=== PATIENT | male | born 1980 | race Hispanic/Latino ===

== ENCOUNTER 2016-09-11 20:05 | Inpatient (IN) | payer MEDICARE, MEDICAID ==
[2016-09-11 20:23] VITALS: O2SAT 98; BMI 32.8
--- NOTE | 2016-09-11 20:30 | ED PDOC ---
Psych Transfer Clearance - Clearance Statement Clearance Statement: Reviewed vital signs, lab results and transfer papers. Patient clinically stable for psychiatric admission.
[2016-09-11] MEDS ORDERED: Alum-Mag Hydrox-Simethicone Susp (30 mL) PO PRN (22:11)
[2016-09-11] MEDS ORDERED: Magnesium Hydroxide Susp 30 ml UD PO PRN (22:11)
[2016-09-11] MEDS ORDERED: DiphenhydrAMINE 50 mg/ml Inj IM PRN (22:11)
[2016-09-12 12:45] LABS: T4 7.05 ug/dl (5.5-11.0)
--- NOTE | 2016-09-12 12:48 | PCM.PSYCH ---
Initial Psychiatric Evaluation - Initial Psychiatric Evaluation Type of Admission: Voluntary Legal Status: Capacity Chief Complaint (in patient's own words): "I was having suicidal thoughts" Patient's Reaction to Hospitalization: HPI: 36 M with PMH of HIV (as per chart, patient denies to check writer that he has HIV), Hyperlipidemia, Genital Herpes, HPV, Genital warts, presents to the hospital with worsening depression and intermittent suicide thoughts in the context of feeling stressed by his medical issues. He is able to contract for safety at this time. PPHx: H/o schizoaffective disorder, multiple psychiatric admissions, current medications: Seroquel XR 100 mg PO Daily/ 450 mg PO HS PMH: HIV (as per chart, patient denies to check writer that he has HIV), Hyperlipidemia, Genital Herpes, HPV, Genital warts, h/o syphillis reports being treated with antibiotics. All: Risperdal, Haldol FH: Father had a heart attack at 35 years of age ; Denies any FH of HTN, CVA, Cancer, DM II SH: Rents a room in a house. Denies drug use. Current Medications: Active Medications Generic Name Dose Route Start Last Admin Trade Name Freq PRN Reason Stop Dose Admin Acetaminophen 650 mg 09/11/16 22:11 Tylenol 325mg Tab PO Q4 PRN for pain 4-7 Al Hydrox/Mg Hydrox/Simethicone 30 ml 09/11/16 22:11 Maalox Plus 30 Ml PO Q4 PRN Dyspepsia Diphenhydramine HCl 50 mg 09/11/16 22:11 Benadryl IM Q6 PRN Extrapyramidal S/S Unable PO Diphenhydramine HCl 50 mg 09/11/16 22:11 Benadryl PO Q6 PRN Extrapyramidal Symptoms Diphenhydramine HCl 50 mg 09/12/16 01:44 09/12/16 01:55 Benadryl PO 50 mg HS PRN Administration Sleep Emtricitabine/Tenofovir 1 tab 09/13/16 09:00 Truvada 200 Mg-300 Mg PO DAILY JOHANN Lorazepam 2 mg 09/11/16 22:11 Ativan IM Q4 PRN Anxiety/Agitation,Unable PO Lorazepam 2 mg 09/11/16 22:11 09/11/16 22:45 Ativan PO 2 mg Q4 PRN Administration Anxiety/Agitation Magnesium Hydroxide 30 ml 09/11/16 22:11 Milk Of Magnesia PO HS PRN Constipation Mirtazapine 30 mg 09/12/16 22:00 Remeron PO HS JOHANN Quetiapine Fumarate 450 mg 09/12/16 22:00 Seroquel PO HS [facility] Quetiapine Fumarate 150 mg 09/12/16 12:45 Seroquel PO DAILY JOHANN Raltegravir 400 mg 09/12/16 17:00 Isentress PO BID [facility] Past Psychiatric History - Past Psychiatric History Previous Treatment History: Inpatient Pertinent Medical Hx (Current Medical&Sleep Prob, Allergies): Allergies Allergy/AdvReac Type Severity Reaction Status Date / Time haloperidol [From Haldol] Allergy SWELLING Verified 09/11/16 20:15 risperidone [From Risperdal] Allergy SWELLING Verified 09/11/16 20:15 Emtricitabine/Tenofovir [Truvada 200 mg-300 mg] 1 tab PO DAILY 02/24/15 Raltegravir Potassium [Isentress] 400 mg PO BID 02/24/15 QUEtiapine [SEROquel XR] 450 mg PO HS 09/12/16 QUEtiapine [SEROquel] 100 mg PO QAM 09/12/16 QUEtiapine [Seroquel] 25 tab PO BID PRN 09/12/16 Review of Systems - Psychiatric Psychiatric: Depression, Irritability, Mood Swings, Suicidal Ideation Mental Status Examination - Personal Presentation Personal Presentation: Looks stated age - Affect Affect: Broad - Motor Activity Motor Activity: Calm - Reliability in Providing Information Reliability in Providing Information: Good - Speech Speech: Organized - Mood Mood: Depressed - Formal Thought Process Formal Thought Process: No Impairment - Obsessions/Compulsions Obsessions: No Compulsions: No - Cognitive Functions Orientation: Person, Place, Situation, Time Sensorium: Alert Estimate of Intelligence: Average Judgement: Intact, as evidence by: Insight regarding need for hospitalization Memory: Recent intact, as evidence by: Ability to recall events of the day, Remote intact, as evidenced by: Abilit to recall sig. life events, Remote intact , as evidenced by: Ability to recall historical events - Risk Risk: Suicidal - Strength & Assets Inventory Strength & Assets Inventory: Cooperative DSM 5 DX - DSM 5 DSM 5 Diagnosis: Schizoaffective Disorder - Recommended/Plan of Treatment Treatment Recommendations and Plan of Treatment: Schizoaffective Disorder -Admit to psychiatry -Hospitalist consult; currently on contact precautions for active HPV and Herpes infections -Increase Seroquel to 150 mg PO Daily/ 450 mg PO HS -Continue Remeron 30 mg PO HS -Individual and group therapy -Disposition planning Projected ELOS: 3-5 days Discharge Plan and Discharge Criteria: Discharge when psychiatrically stable
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
[2016-09-12 19:10] LABS: BASO % 0.5 % (0.0-2.0); EOS # 0.3 K/uL (0.0-0.7); EOS % 3.5 % (0.0-4.0); HEMOGLOBIN 14.3 g/dL (12.0-18.0); LYMPH # 2.6 K/uL (1.0-4.3); LYMPH % 30.8 % (20.0-40.0); MEAN CELL VOLUME 86.6 fl (80.0-94.0); MEAN CORPUSCULAR HEMOGLOBIN 28.3 pg (27.0-31.0); MEAN CORPUSCULAR HGB CONC 32.7 g/dL (33.0-37.0); MEAN PLATELET VOLUME 7.5 fl (7.2-11.7); MONO # 0.6 K/uL (0.0-0.8); MONO % 7.4 % (0.0-10.0); NEUT # 4.8 K/uL (1.8-7.0); NEUT % 57.8 % (50.0-75.0); NRBC % 0.1 % (0.0-0.0); RBC 5.04 Mil/uL (4.40-5.90); RED CELL DISTRIBUTION WIDTH 16.6 % (11.5-14.5); WHITE BLOOD COUNT 8.3 K/uL (4.8-10.8)
[2016-09-13] MEDS ORDERED: Emtricitabine-Tenofovir 200 mg-300 mg Tab PO SCH (09:00)
--- NOTE | 2016-09-13 09:23 | PCM.PYCHPN ---
Psychiatric Progress Note - Psychiatric Progress Note Patient seen today, length of contact: Patient evaluated, case discussed with team, chart reviewed, 35 min Patient Chief Complaint: "I'm feeling better" Problems Identified/Issues Discussed: Patient reports that his mood is improving. He denies currently feeling depressed. NO AH/VH/paranoia. He reports that he feels less stressed by his acute medical issues. He is requesting to be discharged from the hospital tomorrow. Medication Change: No Medical Record Reviewed: Yes Consults ordered or reviewed: ID consult and Medicine consult Mental Status Examination - Cognitive Function Orientation: Person, Place, Situation, Time Memory: Intact Attention: WNL Concentration: WNL Association: WNL Fund of Knowledge: [facility] Decription of patient's judgement and insights: Fair I/J - Mood Mood: Neutral - Affect Affect: Broad - Speech Speech: Appropriate - Formal Thought Process Formal Thought Process: No Impairment Psychotic Thoughts and Behaviors: Denies AH/VH - Suicidal Ideation Suicidal Ideation: No - Homicidal Ideation Homicidal Ideation: No Goal/Treatment Plan - Goal/Treatment Plan Need for Continued Stay: Remain at risks for inpatient hospitalization Progress Toward Problem(s) and Goals/Treatment Plan: Schizoaffective Disorder; now improving clinically -Hospitalist consult and ID consults appreciated -Continue Seroquel 150 mg PO Daily/ 450 mg PO HS -Continue Remeron 30 mg PO HS -Individual and group therapy -Discharge to home tomorrow Estimated Date of D/C: 09/14/16
--- NOTE | 2016-09-14 09:07 | PCM.PYCHDC ---
Mental Status Examination - Mental Status Examination Orientation: Person, Place, Situation, Time Memory: Intact Mood: Neutral Affect: Broad Speech: Appropriate Attention: WNL Concentration: WNL Association: WNL Fund of Knowledge: WNL Formal Thought Process: No Impairment Description of patient's judgement and insight: Fair I/J Psychotic Thoughts and Behaviors: Denies AH/VH Suicidal Ideation: No Current Homicidal Ideation?: No Discharge Summary - Discharge Note Reason for Hospitalization: HPI: 36 M with PMH of HIV (as per chart, patient denies to story writer that he has HIV), Hyperlipidemia, Genital Herpes, HPV, Genital warts, presents to the hospital with worsening depression and intermittent suicide thoughts in the context of feeling stressed by his medical issues. He is able to contract for safety at this time. PPHx: H/o schizoaffective disorder, multiple psychiatric admissions, current medications: Seroquel XR 100 mg PO Daily/ 450 mg PO HS PMH: HIV (as per chart, patient denies to story writer that he has HIV), Hyperlipidemia, Genital Herpes, HPV, Genital warts, h/o syphillis reports being treated with antibiotics. All: Risperdal, Haldol FH: Father had a heart attack at 35 years of age ; Denies any FH of HTN, CVA, Cancer, DM II SH: Rents a room in a house. Denies drug use. Laboratory Data: Abnormal Lab Results 09/12/16 09/12/16 09/12/16 09:00 18:30 18:30 Hemoglobin A1c 5.4 HIV 1&2 Ag/Ab, 4th Gen Nonreactive HIV 1&2 Antibody Screen Reactive H Consultations:: List each consultation separately and include: 1. Reason for request. 2. Findings. 3. Follow-up Consultations: ID consult and Medicine consult Summary of Hospital Course include:: 1. Description of specific treatment plan utilized for patients during their course of treatmen. 2. Summarize the time- course for resolution of acute symptoms and/or regressed behaviors. 3. Describe issues identified and worked on during hospitalization. 4. Describe medication utilized. 5. Describe medical problems identified and treated. 6. Reassessment of suicide risk Summary of Hospital Course: Patient admitted to the hospital. He was seen by medicine and ID consult for HIV and Herpes infections. He was stabilized psychiatrically on Seroquel 150 mg PO AM/ 450 mg PO HS. He is not an acute danger to self or others and is psychiatrically stable for discharge. - Final Diagnosis (DSM 5) Condition upon Discharge: STABLE DSM 5: Schizoaffective Disorder Disposition: HOME/ ROUTINE Follow-up Treatment Plan: Schizoaffective Disorder; now psychiatrically stable for discharge -Hospitalist consult and ID consults appreciated -Continue Seroquel 150 mg PO Daily/ 450 mg PO HS -Continue Remeron 30 mg PO HS -Individual and group therapy -Discharge to home today Prescriptions/Medication Reconciliation: Mirtazapine [Remeron] 30 mg PO HS #30 tab QUEtiapine [SEROquel XR] 150 mg PO ASDIR #120 ter - Smoking Cessation Smoking Cessation Medication prescribed: No Reason for not providing: Not indicated - Antipsychotic Medications Pt discharged on 2 or more routine antipsychotic medications: No
[2016-09-14 16:12] VITALS: BP 114/75; PULSE 85; RESP 20; TEMP 97.6
== END 2016-09-14 17:05 | disposition home or self-care (01) | DRG 885 ==
LOC: H.ER 20:05 → H.STEP 20:29
PROVIDERS: ADMIT Psychiatry & Neurology Psychiatry; ATTEND Psychiatry & Neurology Psychiatry
PROC: GZ51ZZZ Individual Psychotherapy, Behavioral (ICD-10-PCS; 2016-09-11)
PROC: GZHZZZZ Group Psychotherapy (ICD-10-PCS; principal; 2016-09-13)
DX: F25.9 Schizoaffective disorder, unspecified (principal); R45.851 Suicidal ideations; Z21 Asymptomatic human immunodeficiency virus [HIV] infection status; A63.0 Anogenital (venereal) warts; E78.5 Hyperlipidemia, unspecified; E78.00 Pure hypercholesterolemia, unspecified; F31.9 Bipolar disorder, unspecified; Z79.899 Other long term (current) drug therapy; Z91.410 Personal history of adult physical and sexual abuse; A60.00 Herpesviral infection of urogenital system, unspecified; F41.9 Anxiety disorder, unspecified; K40.90 Unilateral inguinal hernia, without obstruction or gangrene, not specified as recurrent